=== PATIENT | male | born 1985 | race Hispanic/Latino ===

== ENCOUNTER 2017-12-04 12:31 | Outpatient (CLI) | payer OTHER ==
--- NOTE | 2017-12-04 14:32 | ULT ---
TESTICULAR ULTRASOUND: 12/04/2017 HISTORY: Mass, left testicle. FINDINGS: The testicles demonstrate a normal sonographic appearance bilaterally with homogeneous echotexture in volving each testicle. There is no testicular mass seen. The right testicle measures 4.4 cm x 2.2 c m x 3.2 cm, with the left testicle measuring 4.5 cm x 2.2 cm x 2.8 cm. Doppler evaluation of each testicle with spectral analysis and color-flow evaluation demonstrates art erial flow in each testicle. There is symmetric flow in each testicle. The right epididymis has a normal sonographic appearance. There is an anechoic cystic structure seen in the left epididymal head, measuring 1.5 cm, demonstrating posterior acoustic enhancement and most likely represents an epididymal cyst. There is also a smaller, oval-shaped anechoic structure, leelee uring 0.5 cm, also likely related to a left epididymal cyst. There is no evidence of a hydrocele. IMPRESSION: 1. Left epididymal cyst, with the largest epididymal cyst on the left measuring 1.5 cm. This may co rrespond to the patient's palpable abnormality. 2. Normal appearing bilateral testicles without evidence of a testicular mass. Arterial flow is doc umented in each testicle. POS: [facility]
== END 2017-12-04 12:32 | disposition home or self-care (01) ==
LOC: ULT 12:31
PROVIDERS: ATTEND Nurse Practitioner Family
DX: N50.89 Other specified disorders of the male genital organs (principal); N50.3 Cyst of epididymis
CPT/HCPCS: 76870; 93976